=== PATIENT | female | born 1950 | race African-American/Black ===

== ENCOUNTER 2018-04-01 22:17 | Inpatient (IN) | payer BC, OTHER ==
[~2018-04-01] VITALS: Ht 154.9 cm; Wt 86.5 kg
[2018-04-01 22:43] LABS: HEMATOCRIT 42.6 % (36.0-46.0); HEMOGLOBIN 14.4 G/DL (11.9-15.5); MCHC 33.8 G/DL (30.0-36.0); MCV 88.8 FL (83-99); PLATELET COUNT 186 K/uL (156-360); RBC DIS.WIDTH-CV 13.6 % (11.8-14.6); RBC DIS.WIDTH-SD 44.4 % (39-53); WHITE BLOOD COUNT 8.9 K/uL (4.1-10.2)
[2018-04-01 22:56] LABS: ALBUMIN 3.8 g/dL (3.2-4.8); CHLORIDE 102 mEq/L (99-109); POTASSIUM 3.3 mEq/L (3.7-5.4); SODIUM 140 mEq/L (136-147)
[2018-04-01 22:58] LABS: GLUCOSE 222 mg/dL (70-99); TOTAL PROTEIN 7.7 g/dL (6.4-8.3)
[2018-04-01 23:00] LABS: TOTAL BILIRUBIN 0.3 mg/dL (0.0-1.0)
[2018-04-01 23:02] LABS: ALKALINE PHOSPHATASE 90 IU/L (3-129); CREATININE 0.9 mg/dL (0.6-1.3)
[2018-04-01 23:03] LABS: UREA NITROGEN (BUN) 17 mg/dL (9-23)
[2018-04-01 23:04] LABS: AST (GOT) 13 IU/L (2-34)
[2018-04-01 23:05] LABS: ALT (GPT) 11 IU/L (3-49); LIPASE 43 U/L (1.0-51.0)
[2018-04-01 23:07] LABS: GFR ESTIMATE (CALCULATED) > 59 mL/min/
[2018-04-01 23:34] LABS: APPEARANCE SL.HAZY ((CLEAR)); BILIRUBIN NEGATIVE; BLOOD SMALL; COLOR YELLOW ((YELLOW)); GLUCOSE (STRIP) NEGATIVE; KETONES NEGATIVE; LEUKOCYTES SMALL; NITRITE NEGATIVE; PROTEIN (STRIP) NEGATIVE; SPECIFIC GRAVITY 1.027 (1.000-1.030)
[2018-04-01 23:45] LABS: BACTERIA RARE /HPF; EPITHELIAL CELLS 2+ /HPF; MUCUS TRACE /LPF; UCUL ADDED? YES; WHITE BLOOD CELLS 40-50 /HPF (0-5)
[2018-04-02 03:37] LABS: INTER. NORMALIZED RATIO 1.2
[2018-04-02 03:54] LABS: PTT 164.4 SEC (25-37)
[2018-04-02 03:54] LABS: TROP-I INTERPRETATION NEGATIVE; TROPONIN-I < 0.01 ng/mL (0.0-0.30)
[2018-04-02 05:05] VITALS: BP 122/58
[2018-04-02 05:47] LABS: HEMATOCRIT 39.4 % (36.0-46.0); HEMOGLOBIN 13.3 G/DL (11.9-15.5); MCH 30.2 PG (29.0-34.0); MCHC 33.8 G/DL (30.0-36.0); MCV 89.3 FL (83-99); PLATELET COUNT 176 K/uL (156-360); RBC DIS.WIDTH-CV 13.7 % (11.8-14.6); RBC DIS.WIDTH-SD 44.6 % (39-53); RED BLOOD COUNT 4.41 M/uL (3.80-5.20)
[2018-04-02 06:02] LABS: CHLORIDE 105 MEQ/L (99-109); CREATININE 0.7 MG/DL (0.6-1.3); GFR ESTIMATE (CALCULATED) > 59 mL/min/; GLUCOSE 159 mg/dL (70-99); POTASSIUM 3.3 MEQ/L (3.7-5.4); SODIUM 143 MEQ/L (136-147); UREA NITROGEN (BUN) 16 mg/dL (9-23)
[2018-04-02 08:00] VITALS: BP 126/58
[2018-04-02 13:00] VITALS: BP 109/59
[2018-04-02] MEDS ORDERED: TRAZODONE HCL50 MG PO (15:26)
[2018-04-02] MEDS ORDERED: LIPITOR20 MG PO (15:28)
[2018-04-02] MEDS ORDERED: ZOLOFT50 MG PO (16:00)
[2018-04-02] MEDS ORDERED: JANUVIA100 MG PO (16:01)
[2018-04-02] MEDS ORDERED: NEXIUM 24HR20 M2 PO (16:03)
[2018-04-02] MEDS ORDERED: HYDROCHLOROTHIA50 MG PO (16:03)
[2018-04-02] MEDS ORDERED: NEURONTIN600 MG PO (16:04)
[2018-04-02] MEDS ORDERED: GLIPIZIDE10 MG PO (16:05)
[2018-04-02] MEDS ORDERED: DEPAKOTE500 MG PO (16:05)
[2018-04-02] MEDS ORDERED: LANTUS 3 M100 UNITS1 SC (16:06)
[2018-04-02] MEDS ORDERED: NEXIUM40 MG PO (16:21)
[2018-04-02 17:04] VITALS: BP 135/67
[2018-04-02 18:39] LABS: INTER. NORMALIZED RATIO 1.3
[2018-04-02 18:42] LABS: PTT 57.9 SEC (25-37)
[2018-04-02 19:51] VITALS: BP 107/66
[2018-04-02 23:40] VITALS: BP 128/67
[2018-04-03 03:30] VITALS: BP 121/62
[2018-04-03 08:42] LABS: HEMATOCRIT 38.5 % (36.0-46.0); HEMOGLOBIN 12.5 G/DL (11.9-15.5); MCH 29.4 PG (29.0-34.0); MCHC 32.5 G/DL (30.0-36.0); MCV 90.6 FL (83-99); PLATELET COUNT 187 K/uL (156-360); RBC DIS.WIDTH-CV 13.9 % (11.8-14.6); RBC DIS.WIDTH-SD 45.9 % (39-53); RED BLOOD COUNT 4.25 M/uL (3.80-5.20)
[2018-04-03 09:12] VITALS: BP 114/58
[2018-04-03 09:16] LABS: CHLORIDE 105 MEQ/L (99-109); CREATININE 0.6 MG/DL (0.6-1.3); GFR ESTIMATE (CALCULATED) > 59 mL/min/; GLUCOSE 149 mg/dL (70-99); POTASSIUM 3.2 MEQ/L (3.7-5.4); SODIUM 141 MEQ/L (136-147); UREA NITROGEN (BUN) 9 mg/dL (9-23)
[2018-04-03 12:30] VITALS: BP 123/56
[2018-04-03 14:26] LABS: INTER. NORMALIZED RATIO 1.3
[2018-04-03 16:00] VITALS: BP 138/90
[2018-04-03 18:04] VITALS: BP 155/65
[2018-04-03 19:56] VITALS: BP 126/60
[2018-04-04] VITALS (8 sets, daily range): BP systolic 111–160; BP diastolic 54–68
[2018-04-04 06:19] LABS: INTER. NORMALIZED RATIO 1.2
[2018-04-04 06:22] LABS: PTT 64.1 SEC (25-37)
[2018-04-04 09:50] LABS: BASOPHIL (%) 0.5 % (0-1); EOSINOPHIL (%) 0.8 % (0-5); EOSINOPHIL COUNT 0.1 K/uL (0-0.3); HEMATOCRIT 38.3 % (36.0-46.0); HEMOGLOBIN 12.8 G/DL (11.9-15.5); IMMATURE GRANULOCYTE (%) 1.2 % (0.0-0.7); LYMPHOCYTE (%) 18.7 % (15-42); LYMPHOCYTE COUNT 1.2 K/uL (1.0-2.8); MCHC 33.4 G/DL (30.0-36.0); MCV 89.9 FL (83-99); MONOCYTE (%) 12.8 % (3-12); MONOCYTE COUNT 0.8 K/uL (0-0.8); NEUTROPHIL COUNT 4.3 K/uL (1.8-6.4); PLATELET COUNT 207 K/uL (156-360); RBC DIS.WIDTH-CV 13.6 % (11.8-14.6); RBC DIS.WIDTH-SD 45.1 % (39-53); RED BLOOD COUNT 4.26 M/uL (3.80-5.20); WHITE BLOOD COUNT 6.6 K/uL (4.1-10.2)
[2018-04-04 10:19] LABS: CHLORIDE 107 MEQ/L (99-109); CREATININE 0.6 MG/DL (0.6-1.3); GFR ESTIMATE (CALCULATED) > 59 mL/min/; GLUCOSE 157 mg/dL (70-99); SODIUM 143 MEQ/L (136-147); UREA NITROGEN (BUN) 8 mg/dL (9-23)
[2018-04-05 03:53] VITALS: BP 104/68
[2018-04-05 05:53] LABS: HEMATOCRIT 39.6 % (36.0-46.0); HEMOGLOBIN 13.1 G/DL (11.9-15.5); MCH 29.6 PG (29.0-34.0); MCHC 33.1 G/DL (30.0-36.0); MCV 89.4 FL (83-99); PLATELET COUNT 194 K/uL (156-360); RBC DIS.WIDTH-CV 13.6 % (11.8-14.6); RBC DIS.WIDTH-SD 44.5 % (39-53); RED BLOOD COUNT 4.43 M/uL (3.80-5.20); WHITE BLOOD COUNT 6.6 K/uL (4.1-10.2)
[2018-04-05 05:56] LABS: INTER. NORMALIZED RATIO 1.5
[2018-04-05 06:29] LABS: PTT 25.2 SEC (25-37)
[2018-04-05 08:03] VITALS: BP 168/78
[2018-04-05 12:02] VITALS: BP 137/69
[2018-04-05] MEDS ORDERED: STIOLTO RESPIMAT4 GM IH (14:41)
[2018-04-05] MEDS ORDERED: ELIQUIS5 MG PO ×3 (14:41→16:38)
[2018-04-05] MEDS ORDERED: FLORASTOR250 MG PO (14:41)
[2018-04-05] MEDS ORDERED: CEFTIN500 MG PO (14:41)
[2018-04-05] MEDS ORDERED: COMBIVENT RESPIM4 GM IH (14:41)
[2018-04-05] MEDS ORDERED: K-DUR20 MEQ PO (16:59)
== END 2018-04-05 16:54 | disposition home health service (06) | DRG 175 ==
LOC: EME 22:17 → EDOF 04-02 03:16 → 4EAST 04-02 03:16 → ENRESERV 04-03 16:00 → 2EAST 04-03 17:47
PROVIDERS: Hospitalist; Internal Medicine; Physician Assistant
DX: I26.99 Other pulmonary embolism without acute cor pulmonale (principal); J96.91 Respiratory failure, unspecified with hypoxia; N39.0 Urinary tract infection, site not specified; B96.4 Proteus (mirabilis) (morganii) as the cause of diseases classified elsewhere; J44.1 Chronic obstructive pulmonary disease with (acute) exacerbation; R59.0 Localized enlarged lymph nodes; R91.1 Solitary pulmonary nodule; F31.9 Bipolar disorder, unspecified; E78.5 Hyperlipidemia, unspecified; F41.9 Anxiety disorder, unspecified; F32.9 Major depressive disorder, single episode, unspecified; I10 Essential (primary) hypertension; F17.210 Nicotine dependence, cigarettes, uncomplicated; E87.6 Hypokalemia; I70.0 Atherosclerosis of aorta; E11.51 Type 2 diabetes mellitus with diabetic peripheral angiopathy without gangrene; E66.9 Obesity, unspecified; R32 Unspecified urinary incontinence; Z68.38 Body mass index [BMI] 38.0-38.9, adult; Z85.3 Personal history of malignant neoplasm of breast
CPT/HCPCS: 71045; 71275; 74176; 80048; 80053; 81003; 82948; 83690; 83880; 84484; 85025; 85027; 85379; 85610; 85730; 87077; 87086; 87186; 93005; 93306; 93970; 94640; 94760; 94799; 99281; 99285; J0696; J1815; J3010; J3480; J7030; S0028